=== PATIENT | female | born 1995 | race Caucasian/White ===

== ENCOUNTER 2020-08-13 22:09 | Inpatient (IN) | payer MEDICAID, OTHER ==
[~2020-08-13] VITALS: Ht 160 cm; Wt 90.3 kg
[2020-08-13] MEDS ORDERED: ZOLPIDEM TARTRATE 10 MG TABLET PO PRN (23:30)
[2020-08-13] MEDS ORDERED: LORazepam 2 MG TABLET PO PRN (23:30)
[2020-08-13] MEDS ORDERED: QUEtiapine FUMARATE 100 MG TABLET PO PRN (23:30)
[2020-08-13 23:33] LABS: BASOPHILS % (AUTO) 0.7 % (0.0-2.0); EOSINOPHILS % (AUTO) 1.3 % (1.0-6.0); HEMOGLOBIN 13.7 g/dL (12.0-16.0); MEAN CORPUSCULAR HEMOGLOBIN 29.4 pg (26.0-34.0); MEAN CORPUSCULAR HGB CONC 33.3 G/dL (31.0-37.0); MEAN CORPUSCULAR VOLUME 88 fL (80-100); MONOCYTES # (AUTO) 1.1 K/uL (0.1-1.0); MONOCYTES % (AUTO) 8.3 % (2.0-9.0); NEUTROPHILS # (AUTO) 8.7 K/uL (1.8-7.7); NEUTROPHILS % (AUTO) 66.7 % (40.0-70.0); PLATELET COUNT (AUTO) 270 K/uL (150-450); RED BLOOD CELL COUNT(AUTO) 4.64 MIL/uL (4.00-5.20); RED CELL DISTRIBUTION WIDTH 13.4 % (11.5-14.5)
[2020-08-13 23:43] LABS: ANION GAP 8 mmol/L (8-16); CALCIUM, TOTAL 9.3 mg/dL (8.8-10.5); CARBON DIOXIDE 27 mmol/L (22-29); CHLORIDE 105 mmol/L (98-107); GLOMERULAR FILTR. RATE CALC > 60 mL/min (>60); GLUCOSE,RANDOM 101 mg/dL (70-110); POTASSIUM 4.1 mmol/L (3.5-5.1); SODIUM SERUM 140 mmol/L (136-145); UREA NITROGEN, BLOOD 13 mg/dL (7-18)
[2020-08-13 23:48] LABS: COVID AG,FIA SOURCE NASOPHARYNGEAL
[2020-08-13 23:50] LABS: ALANINE AMINOTRANSFERASE 27 U/L (12-78); ALBUMIN 3.8 g/dL (3.4-5.0); ALKALINE PHOSPHATASE 74 U/L (46-116); ASPARTATE AMINOTRANSFERASE 15 U/L (15-37); BILIRUBIN,TOTAL 0.3 mg/dL (0.1-1.0); TOTAL PROTEIN, SERUM 7.4 g/dL (6.4-8.2)
[2020-08-13 23:51] LABS: ACETAMINOPHEN < 2 mcg/mL (10-30)
[2020-08-14 00:10] LABS: SALICYLATE 2.1 mg/dL (2.8-20.0)
[2020-08-14 02:25] VITALS: BP 115/66
[2020-08-14] MEDS ORDERED: MAG HYDROX/AL HYDROX/SIMETH ES 30 ML SUSPENSION UDCUP PO PRN (07:45)
[2020-08-14] MEDS ORDERED: DOCUSATE SODIUM 100 MG CAPSULE PO PRN (07:45)
[2020-08-14] MEDS ORDERED: ALBUTEROL SULFATE HFA 90 MCG/PUFF 8 GM INHALER IH PRN (07:45)
[2020-08-14] MEDS ORDERED: ACETAMINOPHEN 325 MG TABLET PO PRN (07:45)
[2020-08-14] MEDS ORDERED: MAGNESIUM HYDROXIDE SUSPENSION 30 ML UDCUP PO PRN (07:45)
[2020-08-14] MEDS ORDERED: LOPERAMIDE HCL 2 MG CAPSULE PO PRN (07:45)
[2020-08-14] MEDS ORDERED: CloNIDine HCL 0.1 MG TABLET PO PRN (07:45)
[2020-08-14] MEDS ORDERED: GuaiFENesin/D-METHORPHAN [SUGAR-FREE] 200-20MG/10 ML SYRUP UDCUP PO PRN (07:45)
[2020-08-14] MEDS ORDERED: NICOTINE 14 MG/24 HOUR PATCH TD PRN (07:45)
[2020-08-14] MEDS ORDERED: ONDANSETRON HCL 4 MG TABLET PO PRN (07:45)
[2020-08-14] MEDS ORDERED: PETROLATUM,WHITE 28 GM JELLY TP PRN (07:45)
[2020-08-14 08:08] VITALS: BP 112/74
[2020-08-14 09:15] LABS: CHOL/HDL RATIO 2.5 (3.9-5.7)
[2020-08-14] MEDS: BuPROPion HCL XL 150 MG ER TABLET PO SCH (13:56)
[2020-08-14 16:12] VITALS: BP 132/71
[2020-08-15 00:17] VITALS: BP 123/65
[2020-08-15 08:28] VITALS: BP 133/100
[2020-08-15 08:45] VITALS: BP 128/94
[2020-08-15] MEDS: BuPROPion HCL XL 150 MG ER TABLET PO SCH (08:45)
[2020-08-15] MEDS: IBUPROFEN 400 MG TABLET PO PRN ×2 (08:45→17:23)
[2020-08-15 16:21] VITALS: BP 140/84
[2020-08-16 00:47] VITALS: BP 126/80
[2020-08-16 08:39] VITALS: BP 112/68
[2020-08-16] MEDS: BuPROPion HCL XL 150 MG ER TABLET PO SCH (10:27)
[2020-08-16 17:48] VITALS: BP 119/67
[2020-08-17 01:03] VITALS: BP 110/68
[2020-08-17] MEDS: BuPROPion HCL XL 150 MG ER TABLET PO SCH (08:22)
[2020-08-17 08:28] VITALS: BP 118/69
[2020-08-17] MEDS ORDERED: BUPR-93 PO (09:33)
[2020-08-17] MEDS: IBUPROFEN 400 MG TABLET PO PRN (10:44)
== END 2020-08-17 14:35 | disposition home or self-care (01) | DRG 751 ==
LOC: EMS 22:09 → B3A 23:29
PROVIDERS: ADMIT Psychiatry & Neurology Psychiatry; ATTEND Psychiatry & Neurology Psychiatry
DX: F33.2 Major depressive disorder, recurrent severe without psychotic features (principal); D72.829 Elevated white blood cell count, unspecified; F41.0 Panic disorder [episodic paroxysmal anxiety]; F41.1 Generalized anxiety disorder; G44.209 Tension-type headache, unspecified, not intractable; R45.851 Suicidal ideations; R58 Hemorrhage, not elsewhere classified; R10.13 Epigastric pain; Z20.822 Contact with and (suspected) exposure to COVID-19
CPT/HCPCS: 87426; 99285; G0480; G0481